=== PATIENT | male | born 1990 | race Two or more races ===

== ENCOUNTER 2018-04-17 22:27 | Emergency (ER) | payer SELFPAY ==
[~2018-04-17] VITALS: Ht 172.7 cm; Wt 64.9 kg
[2018-04-17 22:33] VITALS: BP 133/90
== END 2018-04-17 22:54 | disposition left against medical advice (07) ==
LOC: ED 22:48
DX: S01.81XA Laceration without foreign body of other part of head, initial encounter (principal); R21 Rash and other nonspecific skin eruption; X58.XXXA Exposure to other specified factors, initial encounter; Y93.9 Activity, unspecified; Y92.89 Other specified places as the place of occurrence of the external cause; Y99.8 Other external cause status